=== PATIENT | male | born 1970 | race Caucasian/White ===

== ENCOUNTER 2020-03-08 13:41 | Day surgery (SDC) | payer BC ==
[~2020-03-08] VITALS: Ht 188 cm; Wt 97.7 kg
[2020-03-08] MEDS ORDERED: CARV25 (14:11)
[2020-03-08] MEDS ORDERED: OMEP20ER (14:11)
== END 2020-03-08 15:37 | disposition home or self-care (01) ==
LOC: ORSCSDS 13:41
PROVIDERS: Internal Medicine Gastroenterology
PROC: 0DJD8ZZ Inspection of Lower Intestinal Tract, Via Natural or Artificial Opening Endoscopic (ICD-10-PCS; principal; 2020-03-08 15:15)
DX: Z12.11 Encounter for screening for malignant neoplasm of colon (principal); K57.30 Diverticulosis of large intestine without perforation or abscess without bleeding; K64.8 Other hemorrhoids; I10 Essential (primary) hypertension; E78.00 Pure hypercholesterolemia, unspecified; G47.33 Obstructive sleep apnea (adult) (pediatric); K21.9 Gastro-esophageal reflux disease without esophagitis; Z79.899 Other long term (current) drug therapy
CPT/HCPCS: J2250; J2704; J7120

== ENCOUNTER 2021-11-12 06:51 | Inpatient (IN) | payer OTHER, BC ==
[~2021-11-12] VITALS: Ht 188 cm; Wt 99.8 kg
[~2021-11-12 06:51] MED LIST: CARV25; OMEP20ER
[2021-11-12 08:17] LABS: BASOPHILS ABSOLUTE AUTO 0.04 K/mm3 (0.00-0.23); BASOPHILS PERCENT AUTO 0 % (0-2); EOSINOPHILS ABSOLUTE AUTO 0.14 K/mm3 (0.00-0.68); EOSINOPHILS PERCENT AUTO 1 % (0-6); Hematocrit 41.8 % (37.0-53.0); Hemoglobin 14.2 g/dL (13.5-17.5); IMMATURE GRAN ABSOLUTE AUTO 0.08 K/mm3 (0.00-0.10); IMMATURE GRAN PERCENT AUTO 1 % (0-1); LYMPHOCYTES ABSOLUTE AUTO 1.76 K/mm3 (0.84-5.20); LYMPHOCYTES PERCENT AUTO 15 % (21-46); MONOCYTES ABSOLUTE AUTO 1.05 K/mm3 (0.16-1.47); MONOCYTES PERCENT AUTO 9 % (4-13); Mean Corpuscular HGB 30.5 pg (26.0-34.0); Mean Corpuscular Volume 90 fL (80-100); Mean Platelet Volume 8.8 fL (9.1-12.4); NEUTROPHILS ABSOLUTE AUTO 8.68 K/mm3 (1.96-9.15); NEUTROPHILS PERCENT AUTO 74 % (41-73); Platelet Count 540 K/mm3 (150-400); RDW Coefficient Variation 12.6 % (11.7-14.2); RDW Standard Deviation 41.5 fL (35.1-46.3); Red Blood Cell Count 4.66 M/mm3 (4.30-5.90); White Blood Cell Count 11.75 K/mm3 (4.00-11.30)
[2021-11-12 08:29] LABS: Alanine Aminotransfer (ALT/SGP 77 U/L (12-78); Albumin, Blood 3.2 g/dL (3.4-5.0); Albumin/Globulin Ratio 0.7 (0.8-1.8); Alk Phos 118 U/L (50-136); Anion Gap 6 mmol/L (6-16); Aspartate Aminotrans (AST/SGOT 23 U/L (12-37); Bilirubin, Total 0.4 mg/dL (0.1-1.0); Blood Urea Nitrogen 15 mg/dL (8-24); CO2, Blood 27 mmol/L (21-32); Calcium, Blood 9.4 mg/dL (8.5-10.1); Chloride, Blood 103 mmol/L (98-108); Creatinine, Blood 1.15 mg/dL (0.60-1.20); Globulin, Blood 4.7 g/dL (2.2-4.0); Glomerular Filtration Rate >60 (60-); Glucose, Blood 120 mg/dL (70-99); Potassium, Blood 4.1 mmol/L (3.5-5.5); Sodium, Blood 136 mmol/L (136-145); Total Protein, Blood 7.9 g/dL (6.4-8.2)
[2021-11-12] MEDS ORDERED: Carvedilol12.5 MG PO (11:08)
[2021-11-12] MEDS ORDERED: COLCRYS0.6 M1 PO (11:51)
--- NOTE | 2021-11-12 17:30 | NUR ---
TRANSFER IN/ SHIFT SUMMARY PATIENT CAME TO SCU THIS AFTERNOON FROM ICU. SHE HAD PREVIOUSLY BEEN INTUBATED, BUT IS NOW SUSTAINING ON ROOM AIR. PATIENT IS AWAKE, BUT DEMENTED WITH ALTERED LOC. SHE APPEARS TO BE [place]. SHE DOES SPEAK WORDS, BUT THE MAJORITY OF THE TIME THEY DO NOT FLOW WITH LOGICAL CONVERSATION. SHE LOOKS AROUND AT THE CEILING IF SHE IS WATCHING SOMETHING. PATIENT IS ABLE TO FOLLOW SIMPLE DIRECTIONS. SHE IS ON A REGULAR DIET AFTER SPEECH THERAPY ASSESSED HER TODAY AFTER COMING TO SCU. SHE TAKES PO MEDICATIONS CRUSHED IN APPLE SAUCE. PATIENT IS ON ROOM AIR. SHE HAS A 18 G SUPERGLIDE IN RIGHT AC. PATIENT IS BEDBOUND AND IF STAFF DESIRE TO GET UP INTO A CHAIR, ASSIST OF 2 WOULD BE NEEDED. SHE IS INCONTINENT AND WEARS ATTENDS. SHE DENIES PAIN. PATIENT RECIEVES IV ABX UNISYN AND THERE IS AN ORDER FOR TKO NS. PATIENT WAS HAVING SEIZURE ACTIVITY UPON ARRIVAL TO [facility], BUT THAT APPEARS TO HAVE SUBSIDED. THE PLAN FOR THIS PATIENT IS TO HOPEFULLY GO HOME ON HOSPICE WEDNESDAY. HER DAUGHTER IS WORKING ON GETTING A HOSPITAL BED TO HOME.
--- NOTE | 2021-11-12 17:51 | NUR ---
SHIFT SUMMARY- PATIENTS PAIN HAS BEEN MANAGED PRETTY EFFECTELILY THROUGHOUT THE SHIFT. HE CAME INTO THE ER WITH SEVERE ABDOMINAL PAIN, WHICH IS NOW THOUGHT TO BE DUE TO CHRONS. RECEIVED 50 MCG FETYNAL IN THE ER BEFORE TRANSFER TO SCU. HE RECIEVED 25 MCG FETYNAL THIS EVENING AT 1645. DR. MORRIS CHANGED THIS PATIENT MEDICATION FROM UNYSON TO FLAGYL (METRONIDAZOLE) IV. FIRST BAG WAS HUNG AT 1650. RESPIRATORY THERAPY WAS HERE TO GO OVER THE PATIENTS HOME CPAP MACHINE, WHICH HIS BROUGHT IN. PATIENT IS ALERT AND ORIENTATED, INDEPENDENTLY UP IN ROOM AND TO THE BR. PATIENT DIDN'T WANT TO USE SCD'S, BUT WOULD RATHER BE UP MOVING AROUND ON HIS OWN. WAS HERE VISITING MUCH OF TODAY, BUT RECENTLY WENT HOME. PATIENT IS COMFORTABLE AT THIS TIME.
[2021-11-13 05:35] LABS: BASOPHILS ABSOLUTE AUTO 0.03 K/mm3 (0.00-0.23); BASOPHILS PERCENT AUTO 0 % (0-2); EOSINOPHILS ABSOLUTE AUTO 0.07 K/mm3 (0.00-0.68); EOSINOPHILS PERCENT AUTO 1 % (0-6); Hematocrit 36.6 % (37.0-53.0); Hemoglobin 12.4 g/dL (13.5-17.5); IMMATURE GRAN ABSOLUTE AUTO 0.09 K/mm3 (0.00-0.10); IMMATURE GRAN PERCENT AUTO 1 % (0-1); LYMPHOCYTES ABSOLUTE AUTO 2.28 K/mm3 (0.84-5.20); LYMPHOCYTES PERCENT AUTO 22 % (21-46); MONOCYTES ABSOLUTE AUTO 0.84 K/mm3 (0.16-1.47); MONOCYTES PERCENT AUTO 8 % (4-13); Mean Corpuscular HGB 30.5 pg (26.0-34.0); Mean Corpuscular HGB Conc 33.9 g/dL (31.5-36.5); Mean Corpuscular Volume 90 fL (80-100); Mean Platelet Volume 8.8 fL (9.1-12.4); NEUTROPHILS ABSOLUTE AUTO 7.22 K/mm3 (1.96-9.15); NEUTROPHILS PERCENT AUTO 68 % (41-73); Platelet Count 505 K/mm3 (150-400); RDW Coefficient Variation 12.7 % (11.7-14.2); RDW Standard Deviation 41.9 fL (35.1-46.3); Red Blood Cell Count 4.07 M/mm3 (4.30-5.90); White Blood Cell Count 10.53 K/mm3 (4.00-11.30)
[2021-11-13 05:57] LABS: Anion Gap 7 mmol/L (6-16); Blood Urea Nitrogen 17 mg/dL (8-24); Bun/Creatinine Ratio 16.3 (12.0-20.0); CO2, Blood 26 mmol/L (21-32); Calcium, Blood 8.7 mg/dL (8.5-10.1); Chloride, Blood 106 mmol/L (98-108); Creatinine, Blood 1.04 mg/dL (0.60-1.20); Glomerular Filtration Rate >60 (60-); Glucose, Blood 108 mg/dL (70-99); Potassium, Blood 3.9 mmol/L (3.5-5.5); Sodium, Blood 139 mmol/L (136-145)
--- NOTE | 2021-11-13 06:14 | NUR ---
SHIFT SUMMARY PT DOING WELL, NO C/O PAIN OR NAUSEA THIS SHIFT, NPO PER ORDERS, IVF INFUSING. VSS, AFEBRILE, ABX'S PER MAR. PT INDEPENDENT IN ROOM, VSS, NO BM THIS SHIFT AND PT REPORTS HE HAS NOT SEEN BLOOD IN HIS STOOL. ANTICIPATE D/C WHEN MEDICALLY STABLE.
--- NOTE | 2021-11-13 17:46 | NUR ---
REPORT GIVEN TO KAMALA MELENDEZ RN ON PATIENT FOR TRANSER.
[2021-11-13 19:51] LABS: International Normalized Ratio 1.11; Prothrombin Time Results 11.6 Sec (9.7-11.5)
--- NOTE | 2021-11-14 06:27 | NUR ---
Patient AAOX3, denies pain or disconfort at this time. Patient pleasant and cooperative with care. He his going for a colonocopy today and was being prep. He is now NPO. He is receiving LR @ 100 ML /HR. No acute events occur, we uill continue to monitor until report given to the oncoming RN.
--- NOTE | 2021-11-14 07:49 | NUR ---
History, Chart, Medications and Allergies reviewed before start of procedure. Patient confirms NPO status and agrees with scheduled surgery.
--- NOTE | 2021-11-14 08:44 | NUR ---
11/14/21 0844 Rosa Elena Ulloa MONITOR INTACT WITH CONTINUOUS PULSE OXIMETRY AND INTERMITTENT BP.
[2021-11-14 09:10] LABS: HBSAG SCREEN Negative (Negative); HCV ANTIBODY <0.1 (0.0-0.9); HEP B CORE AB, TOT Negative (Negative)
--- NOTE | 2021-11-14 09:59 | NUR ---
DR RODRIGUES AT BEDSIDE WITH PATIENT AND PATIENT'S , EMIL, REVIEWING EGD/COLONOSCOPY RESULTS.
--- NOTE | 2021-11-14 17:12 | NUR ---
DAY SHIFT SUMMARY 51 YR OLD MALE ADMITTED FOR SMALL BOWEL OBSTRUCTION. PT WENT FOR ENDOSCOPY AND COLONOSCOPY TODAY. GAG REFLEX TESTED EVERY 15 MIN AFTER RETURN TO FLOOR. GAG REFLEX RETURNED AFTER AN HOUR OF RETURN TO FLOOR. DIET ADVANCED FROM NPO TO CLEAR LIQUIDS TO PUREE. AT BEDSIDE. CALL LIGHT WITHIN REACH. PT ABLE TO CALL APPROPRIATELY.
[2021-11-15 05:21] LABS: BASOPHILS ABSOLUTE AUTO 0.02 K/mm3 (0.00-0.23); BASOPHILS PERCENT AUTO 0 % (0-2); EOSINOPHILS PERCENT AUTO 0 % (0-6); Hematocrit 38.6 % (37.0-53.0); Hemoglobin 12.9 g/dL (13.5-17.5); IMMATURE GRAN ABSOLUTE AUTO 0.07 K/mm3 (0.00-0.10); IMMATURE GRAN PERCENT AUTO 1 % (0-1); LYMPHOCYTES ABSOLUTE AUTO 1.76 K/mm3 (0.84-5.20); LYMPHOCYTES PERCENT AUTO 16 % (21-46); MONOCYTES ABSOLUTE AUTO 0.58 K/mm3 (0.16-1.47); MONOCYTES PERCENT AUTO 5 % (4-13); Mean Corpuscular HGB 30.6 pg (26.0-34.0); Mean Corpuscular HGB Conc 33.4 g/dL (31.5-36.5); Mean Corpuscular Volume 92 fL (80-100); Mean Platelet Volume 9.1 fL (9.1-12.4); NEUTROPHILS ABSOLUTE AUTO 8.66 K/mm3 (1.96-9.15); NEUTROPHILS PERCENT AUTO 78 % (41-73); Platelet Count 557 K/mm3 (150-400); RDW Coefficient Variation 12.7 % (11.7-14.2); RDW Standard Deviation 42.1 fL (35.1-46.3); Red Blood Cell Count 4.21 M/mm3 (4.30-5.90); White Blood Cell Count 11.09 K/mm3 (4.00-11.30)
[2021-11-15 05:35] LABS: Anion Gap 8 mmol/L (6-16); Blood Urea Nitrogen 13 mg/dL (8-24); CO2, Blood 23 mmol/L (21-32); Calcium, Blood 8.7 mg/dL (8.5-10.1); Chloride, Blood 109 mmol/L (98-108); Creatinine, Blood 1.08 mg/dL (0.60-1.20); Glomerular Filtration Rate >60 (60-); Glucose, Blood 144 mg/dL (70-99); Potassium, Blood 4.2 mmol/L (3.5-5.5); Sodium, Blood 140 mmol/L (136-145)
--- NOTE | 2021-11-15 06:22 | NUR ---
PM SHIFT SUMMARY PATIENT CAME IN WITH COMPLAINTS OF LUQ ABD PAIN FOR 1.5 WEEKS. HE HAD AN ENDOSCOPY AND COLONOSCOPY HERE WITH US WHICH SHOWED HE HAS CROHN OF THE TERMINAL ILEUM WITH STRICTURE PARTIAL SBO. THE OBSTRUCTION RESOLVED SPONTANEOUSLY. HE WILL BE TRANSITIONING FROM SOLUMEDROL TO PREDNISONE, WHICH HE WILL TAKE FOR 1 MONTH OUTPATIENT. HE IS EXPECTED TO DISCHARGE TODAY BUT NEEDS TO HAVE HIS BLOODWORK AND CHEST XRAY COMPLETED PRIOR TO BEING DISCHARGED.
[2021-11-15 08:10] LABS: EBV AB VCA, IGM <36.0 U/mL (0.0-35.9)
--- NOTE | 2021-11-15 11:21 | NUR ---
DR. AMY RODRIGUES GAVE VORB OF REGULAR DIET ORDER. PATIENT HAS NOTICED PAIN IMPROVEMENT AND HAS NO COMPLAINTS OF PAIN. PATIENT IS WAITING FOR ORDERS TO DC HOME WITH VIA PERSONAL VEHICLE.
[2021-11-15] MEDS ORDERED: VISBIOME 112.51 EACH PO (12:48)
[2021-11-15] MEDS ORDERED: ASCO500 PO (12:50)
[2021-11-15] MEDS ORDERED: DOCU100 PO (12:52)
[2021-11-15] MEDS ORDERED: FERSU300 PO (12:53)
[2021-11-15] MEDS ORDERED: METR500 PO (12:54)
[2021-11-15] MEDS ORDERED: LEVO750 PO (12:54)
[2021-11-15] MEDS ORDERED: ONDA4 PO (12:56)
[2021-11-15] MEDS ORDERED: PRED20 PO (12:57)
--- NOTE | 2021-11-15 13:37 | NUR ---
PT DCD HOME AT 1331 WITH WITH PERSONAL VEHICLE. PATIENT AND HAVE NO QUESTIONS ABOUT MEDICATIONS OR FOLLOW UP.
[2021-11-17 14:08] LABS: ACTIN (SMOOTH MUSCLE) ANTIBODY 9 Units (0-19)
[2021-11-17 15:08] LABS: QUANTIFERON MITOGEN VALUE >10.00 IU/mL (.); QUANTIFERON NIL VALUE 0.02 IU/mL (.); QUANTIFERON TB1 AG VALUE 0.02 IU/mL (.); QUANTIFERON TB2 AG VALUE 0.03 IU/mL (.); QUANTIFERON-TB GOLD PLUS Negative (Negative)
== END 2021-11-15 13:36 | disposition home or self-care (01) | DRG 385 ==
LOC: ER 06:51 → MEDS 09:59
PROVIDERS: Emergency Medicine; Internal Medicine; Internal Medicine Gastroenterology; ADMIT Family Medicine
PROC: 0DBG8ZX Excision of Left Large Intestine, Via Natural or Artificial Opening Endoscopic, Diagnostic (ICD-10-PCS; 2021-11-14)
PROC: 0DBB8ZX Excision of Ileum, Via Natural or Artificial Opening Endoscopic, Diagnostic (ICD-10-PCS; 2021-11-14)
PROC: 0DB68ZX Excision of Stomach, Via Natural or Artificial Opening Endoscopic, Diagnostic (ICD-10-PCS; 2021-11-14)
PROC: 0DB98ZX Excision of Duodenum, Via Natural or Artificial Opening Endoscopic, Diagnostic (ICD-10-PCS; principal; 2021-11-14 08:00)
PROC: 0DBF8ZX Excision of Right Large Intestine, Via Natural or Artificial Opening Endoscopic, Diagnostic (ICD-10-PCS; 2021-11-14 08:00)
DX: K50.012 Crohn's disease of small intestine with intestinal obstruction (principal); K65.1 Peritoneal abscess; Z53.29 Procedure and treatment not carried out because of patient's decision for other reasons; I10 Essential (primary) hypertension; E78.5 Hyperlipidemia, unspecified; G47.33 Obstructive sleep apnea (adult) (pediatric); K21.9 Gastro-esophageal reflux disease without esophagitis; K22.2 Esophageal obstruction; D50.9 Iron deficiency anemia, unspecified; K64.8 Other hemorrhoids; M10.9 Gout, unspecified; K44.9 Diaphragmatic hernia without obstruction or gangrene; K57.30 Diverticulosis of large intestine without perforation or abscess without bleeding; F10.10 Alcohol abuse, uncomplicated; Z98.890 Other specified postprocedural states; Z71.51 Drug abuse counseling and surveillance of drug abuser; Z87.19 Personal history of other diseases of the digestive system; Z87.891 Personal history of nicotine dependence; Z88.8 Allergy status to other drugs, medicaments and biological substances; Z79.899 Other long term (current) drug therapy
CPT/HCPCS: 36415; 71046; 74176; 74177; 80048; 80053; 82103; 82104; 82306; 82390; 82607; 82728; 82746; 83540; 83550; 83690; 85025; 85610; 86015; 86038; 86140; 86317; 86381; 86480; 86664; 86665; 86704; 86708; 86735; 86762; 86765; 86803; 87340; 88305; 88342; 94760; 94762; 96365; 96375; 96376; 99285-25; A9270; C9113; J1100; J1200; J1956; J2001; J2405; J2543; J2704; J2920; J3010; J7030; J7120; Q9967

== ENCOUNTER → 2021-12-23 | Outpatient (CLI) | payer OTHER, BC ==
[~2021-12-23] MED LIST changes: +ASCO500 PO; +COLCRYS0.6 M1 PO; +Carvedilol12.5 MG PO; +DOCU100 PO; +FERSU300 PO; +LEVO750 PO; +METR500 PO; +ONDA4 PO; +PRED20 PO; +VISBIOME 112.51 EACH PO
== END ==
LOC: LAB SHORT 09:40
DX: Z48.817 Encounter for surgical aftercare following surgery on the skin and subcutaneous tissue (principal); L08.9 Local infection of the skin and subcutaneous tissue, unspecified
CPT/HCPCS: 87070; 87205

== ENCOUNTER 2022-10-07 11:14 | Day surgery (SDC) | payer BC ==
[~2022-10-07] VITALS: Ht 188 cm; Wt 98.5 kg
[2022-10-07] MEDS ORDERED: OMEP20ER (11:33)
== END 2022-10-07 13:28 | disposition home or self-care (01) ==
LOC: ORSCSDS 11:14
PROVIDERS: Internal Medicine Gastroenterology
PROC: 0DBG8ZX Excision of Left Large Intestine, Via Natural or Artificial Opening Endoscopic, Diagnostic (ICD-10-PCS; principal; 2022-10-07 12:30)
PROC: 0DBB8ZX Excision of Ileum, Via Natural or Artificial Opening Endoscopic, Diagnostic (ICD-10-PCS; principal; 2022-10-07 12:30)
PROC: 0DBF8ZX Excision of Right Large Intestine, Via Natural or Artificial Opening Endoscopic, Diagnostic (ICD-10-PCS; principal; 2022-10-07 12:30)
DX: K50.90 Crohn's disease, unspecified, without complications (principal); Z86.010 Personal history of colon polyps; K57.30 Diverticulosis of large intestine without perforation or abscess without bleeding; I10 Essential (primary) hypertension; Z79.899 Other long term (current) drug therapy
CPT/HCPCS: 88305; J0330; J0461; J2250; J2405; J2704; J7120; Q9968

== ENCOUNTER 2022-12-09 12:41 | Inpatient (IN) | payer OTHER ==
[~2022-12-09] VITALS: Ht 188 cm; Wt 97.5 kg
[2022-12-09 14:31] LABS: Albumin/Globulin Ratio 1.1 (0.8-1.8); Bilirubin, Total 1.3 mg/dL (0.1-1.0); Bun/Creatinine Ratio 10.6 (12.0-20.0); Calcium, Blood 9.5 mg/dL (8.5-10.1); Creatinine, Blood 1.13 mg/dL (0.60-1.20); Globulin, Blood 3.8 g/dL (2.2-4.0); Total Protein, Blood 7.8 g/dL (6.4-8.2)
[2022-12-09 14:52] LABS: BASOPHILS ABSOLUTE AUTO 0.02 K/mm3 (0.00-0.23); BASOPHILS PERCENT AUTO 0 % (0-2); EOSINOPHILS ABSOLUTE AUTO 0.06 K/mm3 (0.00-0.68); EOSINOPHILS PERCENT AUTO 1 % (0-6); Hematocrit 43.9 % (37.0-53.0); Hemoglobin 15.2 g/dL (13.5-17.5); IMMATURE GRAN ABSOLUTE AUTO 0.06 K/mm3 (0.00-0.10); IMMATURE GRAN PERCENT AUTO 1 % (0-1); LYMPHOCYTES ABSOLUTE AUTO 2.13 K/mm3 (0.84-5.20); LYMPHOCYTES PERCENT AUTO 18 % (21-46); MONOCYTES PERCENT AUTO 9 % (4-13); Mean Corpuscular HGB 31.2 pg (26.0-34.0); Mean Corpuscular HGB Conc 34.6 g/dL (31.5-36.5); Mean Corpuscular Volume 90 fL (80-100); NEUTROPHILS PERCENT AUTO 72 % (41-73); RDW Coefficient Variation 12.4 % (11.7-14.2); RDW Standard Deviation 40.8 fL (35.1-46.3); Red Blood Cell Count 4.87 M/mm3 (4.30-5.90); White Blood Cell Count 11.67 K/mm3 (4.00-11.30)
[2022-12-09 15:32] LABS: Mean Platelet Volume 9.4 fL (9.1-12.4); Platelet Count 306 K/mm3 (150-400)
[2022-12-09 15:52] LABS: Source, Urine Clean Catch
[2022-12-09 16:11] LABS: Appearance, Urine Clear (Clear); Bilirubin, Urine Neg (Neg); Blood, Urine Neg (Neg); Color, Urine Yellow (P-Yellow); Glucose Qualitative, Urine Neg (Neg); Ketones, Urine Neg (Neg); Leukocyte Esterase, Urine Neg (Neg); Nitrite, Urine Neg (Neg); Protein, Urine Neg (Neg); Specific Gravity, Urine 1.005 (1.003-1.022); Urobilinogen, Urine NORM (Normal)
--- NOTE | 2022-12-09 17:37 | NUR ---
Pt admitted for bowel obstruction. Patient AOx4, independent in room. Patient reported pain is currently 2/10, radiating t/o ABD. Bowel tones hypoactive. Vitals stable. NPO tonight. IV in left AC, Normal saline infusing. Patient declined skin check by 2x RNs. Patient reported history of melanoma, scar noted on head from removal of melanoma. Plan is to administred fluids, solumedrol, ABX. Will contine plan of care.
--- NOTE | 2022-12-10 05:06 | NUR ---
SHIFT SUMMARY 52 YR M ADMITTED ON 12/09/22 FOR BOWEL OBSTRUCTION. FULL CODE. NO ACUTE CHANGES THIS SHIFT. PT HAS BEEN NPO AND ONLY HAD A SMALL SIP OF WATER TO SWALLOW TYLENOL. HE HAS FLUIDS INFUSING AND HAS SLEPT FOR MOST OF THIS SHIFT. AND FRIENDS WERE AT BEDSIDE AT BEGINNING OF SHIFT BUT LEFT FOR THE NIGHT SHORTLY AFTER.
[2022-12-10 05:16] LABS: Bun/Creatinine Ratio 14.4 (12.0-20.0); Calcium, Blood 9.1 mg/dL (8.5-10.1); Creatinine, Blood 1.04 mg/dL (0.60-1.20); Potassium, Blood 3.9 mmol/L (3.5-5.5)
--- NOTE | 2022-12-10 16:30 | NUR ---
SHIFT SUMMARY PATIENT IS ALERT AND ORIENTED. PATIENT HAS HAD NO ACUTE EVENTS THIS SHIFT. VITAL SIGNS REVIEWED. PATIENT HAS BEEN GETTING NS 100/HR THIS SHIFT. PATIENT HAS DIVERTICULITIS AND HAS BEEN GETTING ABX. PATIENT HAS HAD DIET UPGRADED TO CLEAR LIQUID DIET AND TOLERATING WELL. PATIENT HAS BEEN IND IN ROOM. PATIENTS HAS BEEN WITH PT ALL SHIFT. PATIENT HAS NOT COMPLAINED OF NAUSEA, SOB OR VOMITTING. PATIENT COMPLAINED OF A HEADACHE AND MEDICATED PER EMAR. BED IN LOCKED AND LOWEST POSITION. CALL LIGHT IN SHIFT.
[2022-12-11 05:12] LABS: BASOPHILS ABSOLUTE AUTO 0.01 K/mm3 (0.00-0.23); BASOPHILS PERCENT AUTO 0 % (0-2); EOSINOPHILS PERCENT AUTO 0 % (0-6); Hemoglobin 13.4 g/dL (13.5-17.5); IMMATURE GRAN ABSOLUTE AUTO 0.04 K/mm3 (0.00-0.10); IMMATURE GRAN PERCENT AUTO 0 % (0-1); LYMPHOCYTES ABSOLUTE AUTO 1.82 K/mm3 (0.84-5.20); LYMPHOCYTES PERCENT AUTO 14 % (21-46); MONOCYTES ABSOLUTE AUTO 0.66 K/mm3 (0.16-1.47); MONOCYTES PERCENT AUTO 5 % (4-13); Mean Corpuscular HGB 31.4 pg (26.0-34.0); Mean Corpuscular HGB Conc 34.4 g/dL (31.5-36.5); Mean Corpuscular Volume 91 fL (80-100); Mean Platelet Volume 9.3 fL (9.1-12.4); NEUTROPHILS ABSOLUTE AUTO 10.14 K/mm3 (1.96-9.15); NEUTROPHILS PERCENT AUTO 80 % (41-73); Platelet Count 284 K/mm3 (150-400); RDW Coefficient Variation 12.7 % (11.7-14.2); RDW Standard Deviation 42.3 fL (35.1-46.3); Red Blood Cell Count 4.27 M/mm3 (4.30-5.90); White Blood Cell Count 12.67 K/mm3 (4.00-11.30)
--- NOTE | 2022-12-11 05:24 | NUR ---
SHIFT SUMMARY 52 YR M ADMITTED ON 12/09/22 FOR BOWEL OBSTRUCTION/DIVERTICULITIS. FULL CODE. PT STATES THAT HE HAD A BOWEL MOVEMENT AROUND MIDNIGHT THIS SHIFT. HE STATES THAT IT WAS ABOUT 1/2 LOOSE AND 1/2 SOLID. HE STATED THAT HE FELT MUCH BETTER AFTERWARD. NO ACUTE CHANGES OTHERWISE. HE IS A&O X 4 AND INDEPENDANT IN THE ROOM. NO C/O PAIN OR DISCOMFORT THIS SHIFT.
[2022-12-11 05:42] LABS: Bun/Creatinine Ratio 13.6 (12.0-20.0); Calcium, Blood 8.9 mg/dL (8.5-10.1); Creatinine, Blood 1.1 mg/dL (0.60-1.20)
[2022-12-11] MEDS ORDERED: VISBIOME 112.51 EACH PO (13:05)
[2022-12-11] MEDS ORDERED: AMOCLA875 PO (13:05)
[2022-12-11] MEDS ORDERED: BUDESONIDE EC3 M1 PO (13:06)
--- NOTE | 2022-12-11 13:30 | NUR ---
DISCHARGE NOTE- PT WAS GIVEN VERBAL AND WRITTEN DISCHARGE INSTRUCTIONS AND ACKNOWLEDGED UNDERSTANDING OF THEM. IV DC'D PRIOR TO DISCHARGE. PT AND SPOUSE DECLINED WC AND ESCORT AND WALKED OUT ON THEIR OWN. NO S&S OF DISTRESS NOTED AT THE TIME OF DISCHARGE.
== END 2022-12-11 13:29 | disposition home or self-care (01) | DRG 386 ==
LOC: ER 12:41 → MEDS 12:42
PROVIDERS: Internal Medicine; Student in an Organized Health Care Education/Training Program; ADMIT Internal Medicine
DX: K50.912 Crohn's disease, unspecified, with intestinal obstruction (principal); K57.32 Diverticulitis of large intestine without perforation or abscess without bleeding; R73.9 Hyperglycemia, unspecified; T38.0X5A Adverse effect of glucocorticoids and synthetic analogues, initial encounter; I10 Essential (primary) hypertension; K21.9 Gastro-esophageal reflux disease without esophagitis; M10.9 Gout, unspecified; Z85.820 Personal history of malignant melanoma of skin; Z91.041 Radiographic dye allergy status; Z88.8 Allergy status to other drugs, medicaments and biological substances; Z79.899 Other long term (current) drug therapy
CPT/HCPCS: 36415; 74177; 80048; 80053; 81003; 83690; 85025; 93005; 93010; 96361; 96365-59; 96367; 96372; 96375; 96376; 99285-25; A9270; C9113; G0378; J0295; J0696; J1200; J1650; J2920; J2930; J3010; J7030; Q9967

== ENCOUNTER 2023-01-08 16:10 | Emergency (ER) | payer OTHER ==
[~2023-01-08] VITALS: Ht 188 cm; Wt 95.2 kg
[~2023-01-08 16:10] MED LIST changes: +AMOCLA875 PO; +BUDESONIDE EC3 M1 PO
[2023-01-08 19:59] LABS: BASOPHILS ABSOLUTE AUTO 0.02 K/mm3 (0.00-0.23); BASOPHILS PERCENT AUTO 0 % (0-2); EOSINOPHILS ABSOLUTE AUTO 0.06 K/mm3 (0.00-0.68); EOSINOPHILS PERCENT AUTO 1 % (0-6); Hematocrit 45.5 % (37.0-53.0); Hemoglobin 15.3 g/dL (13.5-17.5); IMMATURE GRAN ABSOLUTE AUTO 0.04 K/mm3 (0.00-0.10); IMMATURE GRAN PERCENT AUTO 0 % (0-1); LYMPHOCYTES ABSOLUTE AUTO 2.36 K/mm3 (0.84-5.20); LYMPHOCYTES PERCENT AUTO 20 % (21-46); MONOCYTES ABSOLUTE AUTO 1.12 K/mm3 (0.16-1.47); MONOCYTES PERCENT AUTO 9 % (4-13); Mean Corpuscular HGB Conc 33.6 g/dL (31.5-36.5); Mean Corpuscular Volume 92 fL (80-100); Mean Platelet Volume 8.9 fL (9.1-12.4); NEUTROPHILS ABSOLUTE AUTO 8.27 K/mm3 (1.96-9.15); NEUTROPHILS PERCENT AUTO 70 % (41-73); Platelet Count 329 K/mm3 (150-400); RDW Coefficient Variation 12.7 % (11.7-14.2); RDW Standard Deviation 43.1 fL (35.1-46.3); Red Blood Cell Count 4.94 M/mm3 (4.30-5.90); White Blood Cell Count 11.87 K/mm3 (4.00-11.30)
[2023-01-08 20:10] LABS: Albumin, Blood 4.4 g/dL (3.4-5.0); Albumin/Globulin Ratio 1.1 (0.8-1.8); Bilirubin, Total 0.9 mg/dL (0.1-1.0); Bun/Creatinine Ratio 11.6 (12.0-20.0); Calcium, Blood 9.8 mg/dL (8.5-10.1); Creatinine, Blood 1.12 mg/dL (0.60-1.20); Potassium, Blood 3.7 mmol/L (3.5-5.5); Total Protein, Blood 8.4 g/dL (6.4-8.2)
[2023-01-08 22:00] VITALS: BP 164/100
== END 2023-01-08 22:11 | disposition home or self-care (01) ==
LOC: ER 16:10
PROVIDERS: Student in an Organized Health Care Education/Training Program
DX: R10.9 Unspecified abdominal pain (principal); K21.9 Gastro-esophageal reflux disease without esophagitis; K50.90 Crohn's disease, unspecified, without complications; Z79.899 Other long term (current) drug therapy; V89.2XXA Person injured in unspecified motor-vehicle accident, traffic, initial encounter; Y92.411 Interstate highway as the place of occurrence of the external cause
CPT/HCPCS: 36415; 70450; 71046; 74177; 80053; 85025; 93005; 93010; 96374; 99285-25; A9270; J1200; Q9967

== ENCOUNTER 2023-06-30 08:19 | Day surgery (SDC) | payer BC ==
[~2023-06-30] VITALS: Ht 188 cm; Wt 93.6 kg
[2023-06-30] MEDS ORDERED: Amlodipine Bes2.5 MG (08:33)
[2023-06-30 11:32] VITALS: BP 121/86
== END 2023-06-30 11:24 | disposition home or self-care (01) ==
LOC: ORSCSDS 08:19
PROVIDERS: Internal Medicine Gastroenterology
PROC: 0DB58ZX Excision of Esophagus, Via Natural or Artificial Opening Endoscopic, Diagnostic (ICD-10-PCS; principal; 2023-06-30 09:30)
PROC: 0D757ZZ Dilation of Esophagus, Via Natural or Artificial Opening (ICD-10-PCS; principal; 2023-06-30 09:30)
DX: R13.10 Dysphagia, unspecified (principal); K50.90 Crohn's disease, unspecified, without complications; K21.00 Gastro-esophageal reflux disease with esophagitis, without bleeding; K22.2 Esophageal obstruction; K44.9 Diaphragmatic hernia without obstruction or gangrene; K75.81 Nonalcoholic steatohepatitis (NASH); I10 Essential (primary) hypertension; E78.5 Hyperlipidemia, unspecified; G47.33 Obstructive sleep apnea (adult) (pediatric); Z79.899 Other long term (current) drug therapy
CPT/HCPCS: 88305; J2704; J7120

== ENCOUNTER 2023-08-10 09:42 | Observation (INO) | payer OTHER ==
[~2023-08-10] VITALS: Ht 188 cm; Wt 95.2 kg
[~2023-08-10 09:42] MED LIST changes: +Amlodipine Bes2.5 MG PO
[2023-08-10 10:23] LABS: BASOPHILS ABSOLUTE AUTO 0.02 K/mm3 (0.00-0.23); BASOPHILS PERCENT AUTO 0 % (0-2); EOSINOPHILS ABSOLUTE AUTO 0.02 K/mm3 (0.00-0.68); EOSINOPHILS PERCENT AUTO 0 % (0-6); Hematocrit 41.4 % (37.0-53.0); Hemoglobin 14.4 g/dL (13.5-17.5); IMMATURE GRAN ABSOLUTE AUTO 0.03 K/mm3 (0.00-0.10); IMMATURE GRAN PERCENT AUTO 0 % (0-1); LYMPHOCYTES ABSOLUTE AUTO 1.24 K/mm3 (0.84-5.20); LYMPHOCYTES PERCENT AUTO 12 % (21-46); MONOCYTES ABSOLUTE AUTO 0.71 K/mm3 (0.16-1.47); MONOCYTES PERCENT AUTO 7 % (4-13); Mean Corpuscular HGB 32.5 pg (26.0-34.0); Mean Corpuscular HGB Conc 34.8 g/dL (31.5-36.5); Mean Corpuscular Volume 94 fL (80-100); Mean Platelet Volume 8.8 fL (9.1-12.4); NEUTROPHILS ABSOLUTE AUTO 8.56 K/mm3 (1.96-9.15); NEUTROPHILS PERCENT AUTO 81 % (41-73); Platelet Count 266 K/mm3 (150-400); RDW Coefficient Variation 12.3 % (11.7-14.2); RDW Standard Deviation 42.5 fL (35.1-46.3); Red Blood Cell Count 4.43 M/mm3 (4.30-5.90); White Blood Cell Count 10.58 K/mm3 (4.00-11.30)
[2023-08-10 10:52] LABS: Albumin, Blood 3.8 g/dL (3.4-5.0); Albumin/Globulin Ratio 1.1 (0.8-1.8); Bilirubin, Total 1.7 mg/dL (0.1-1.0); Bun/Creatinine Ratio 11.6 (12.0-20.0); Calcium, Blood 8.9 mg/dL (8.5-10.1); Creatinine, Blood 0.95 mg/dL (0.60-1.20); Globulin, Blood 3.6 g/dL (2.2-4.0); Potassium, Blood 3.9 mmol/L (3.5-5.5); Total Protein, Blood 7.4 g/dL (6.4-8.2)
[2023-08-10 16:57] VITALS: BP 133/79
[2023-08-10] MEDS ORDERED: OMEP20ER PO (18:06)
--- NOTE | 2023-08-10 18:23 | NUR ---
SHIFT SUMMARY: ASSUMED CARE OF PATIENT UPON HIS ARRIVAL FROM ED AT 1648. ORIENTED TO ROOM, UNIT, CALL LIGHT, FALL PREVENTION MEASURES, AND FIRE/IGNITION RISK. STATED HAS NO INCENDIARY DEVICES. A&O X 4, PLEASANT. ABD PAIN IS 3/10, WAS GIVEN TORADOL IN ED PRIOR TO TRANSFER. DENIES N/V, LBM WAS 08/08/23; HAS NOT EATEN ANYTHING SINCE WEDNESDAY. INDEPENDENT IN ROOM. WILL BRING PT'S CPAP FROM HOME TOMORROW.
[2023-08-10 19:55] VITALS: BP 126/69
--- NOTE | 2023-08-11 04:20 | NUR ---
SHIFT SUMMARY PT LAYING IN BED DURING BEDSIDE ROUNDS, REPORT FROM RASHEEDA HELLER RN PT REPORTS PAIN IN ABDOMEN IS TOLERABLE SINCE TORADOL GIVEN - PT TOOK SCHEDULED HS MEDICATION WITHOUT PROBLEMS, IV INFUSING LR @ 150- PT GIVEN TORADOL FOR C/O INCREASED ABDOMEN PAIN- PT USES CALL LIGHT APPROPRIATE, PT INDEPENDENT IN ROOM- BED LOW POSITION, CALL LIGHT WITH REACH
[2023-08-11 04:23] VITALS: BP 138/90
[2023-08-11 05:27] LABS: BASOPHILS ABSOLUTE AUTO 0.01 K/mm3 (0.00-0.23); BASOPHILS PERCENT AUTO 0 % (0-2); EOSINOPHILS PERCENT AUTO 0 % (0-6); Hematocrit 40.1 % (37.0-53.0); Hemoglobin 13.5 g/dL (13.5-17.5); IMMATURE GRAN ABSOLUTE AUTO 0.06 K/mm3 (0.00-0.10); IMMATURE GRAN PERCENT AUTO 1 % (0-1); LYMPHOCYTES ABSOLUTE AUTO 1.03 K/mm3 (0.84-5.20); LYMPHOCYTES PERCENT AUTO 11 % (21-46); MONOCYTES PERCENT AUTO 2 % (4-13); Mean Corpuscular HGB 31.5 pg (26.0-34.0); Mean Corpuscular HGB Conc 33.7 g/dL (31.5-36.5); Mean Corpuscular Volume 94 fL (80-100); Mean Platelet Volume 9.2 fL (9.1-12.4); NEUTROPHILS ABSOLUTE AUTO 7.93 K/mm3 (1.96-9.15); NEUTROPHILS PERCENT AUTO 86 % (41-73); Platelet Count 248 K/mm3 (150-400); RDW Coefficient Variation 12.4 % (11.7-14.2); RDW Standard Deviation 42.8 fL (35.1-46.3); Red Blood Cell Count 4.28 M/mm3 (4.30-5.90); White Blood Cell Count 9.23 K/mm3 (4.00-11.30)
[2023-08-11 06:05] LABS: Albumin, Blood 3.4 g/dL (3.4-5.0); Bilirubin, Total 0.9 mg/dL (0.1-1.0); Bun/Creatinine Ratio 16.2 (12.0-20.0); Calcium, Blood 8.8 mg/dL (8.5-10.1); Creatinine, Blood 0.93 mg/dL (0.60-1.20); Globulin, Blood 3.5 g/dL (2.2-4.0); Potassium, Blood 4.3 mmol/L (3.5-5.5); Total Protein, Blood 6.9 g/dL (6.4-8.2)
[2023-08-11 07:16] VITALS: BP 137/80
[2023-08-11] MEDS ORDERED: PRED20 PO (14:24)
[2023-08-11 14:43] VITALS: BP 134/85
--- NOTE | 2023-08-11 17:36 | NUR ---
SUMMARY- PT A/O X4, INDEPENDANT IN ROOM. HAD A BM THIS AM MOSTLY [place] WITH SOME FORMED CHUNCKS. PASSING GAS. HAS HAD NO ABD PAIN BUT STATES ABD FEELS TIGHT AND SLIGHTLY DISTENDED. PT HAS AMBULATED IN THE HALLS TODAY MULT TIMES WITH ACCOMPANYING. PT ADVANCED TO A GENERAL DIET FOR DINNER, TOLERATED BEEF TIPS AND PEES. WANTING TO DELAY DISCHARGE IN CASE SBO IS NOT RESLOVED, DR LOAIZA IS AWARE AND APPROVES PT STAYING UNTIL SURE SBO RESOLVED.
[2023-08-11 19:14] VITALS: BP 149/92
[2023-08-12 04:06] VITALS: BP 140/80
--- NOTE | 2023-08-12 04:24 | NUR ---
SHIFT SUMMARY PATIENT IS A/O X4. ABLE TO MAKE NEEDS KNOWN AND CALLS APPROPRIATELY. PER REPORT PATIENT IS TOLERATING ORAL INTAKE. PATIENT TAKES MEDS WHOLE WITH WATER. PATIENT REPORTS SOME PAIN IN HIS LEFT LOWER ABDOMEN-PATIENT DENIES NEED FOR PAIN MEDICATIONS. PATIENT SLEPT WELL T/O NIGHT. BED IS LOCKED IN THE LOWEST POSITION WITH CALL LIGHT IN REACH. NO ACUTE CHANGES OR S/S OF DISTRESS.
[2023-08-12 07:24] VITALS: BP 123/77
--- NOTE | 2023-08-12 09:00 | NUR ---
Pt laying in bed, family at bedside, a/ox4, pleasant and cooperative with care, follows commands well, states he's suppose to go home today if he tolerates breakfast, denies pain, states he's passing cole and having stools, call light in reach.
--- NOTE | 2023-08-12 10:34 | NUR ---
PT HAS BEEN DISCHARGED TO HOME, MEDS WERE CALLED IN AND READY, IV REMOVED INTACT, WENT OVER INSTRUCTIONS, HE VERBALIZED UNDERSTANDING, LEFT VIA AMBULATION WITH IN ATTENDENCE WITH ALL BELONGINGS.
== END 2023-08-12 10:30 | disposition home or self-care (01) ==
LOC: ER 09:42 → PCU 09:43 → MEDS 09:43 → ER 09:43 → MEDS 17:30 → ENPENDDIS 08-11 12:18 → MEDS 08-12 10:30
PROVIDERS: Physician Assistant; Student in an Organized Health Care Education/Training Program; ADMIT Internal Medicine
DX: K56.600 Partial intestinal obstruction, unspecified as to cause (principal); K50.90 Crohn's disease, unspecified, without complications; K57.30 Diverticulosis of large intestine without perforation or abscess without bleeding; K21.9 Gastro-esophageal reflux disease without esophagitis; I10 Essential (primary) hypertension; Z91.041 Radiographic dye allergy status; Z88.8 Allergy status to other drugs, medicaments and biological substances; Z79.899 Other long term (current) drug therapy
CPT/HCPCS: 36415; 74177; 80053; 82947; 83690; 85025; 96361; 96365; 96366; 96367; 96375; 96376; 99285-25; A9270; G0378; J0295; J1200; J1885; J2543; J2920; J7030; J7120; Q9967

== ENCOUNTER → 2024-10-13 | Outpatient (CLI) | payer BC ==
[~2024-10-13] MED LIST changes: -ASCO500 PO; +ENTYVIO300 M1; +ENTYVIO300 MG; +OMEP20ER PO; +Percocet 5-3251 EACH PO; +THERA-D2000 UNIT PO; +Vitamin B Comple1 EA PO; +Vitamin C100 M1 PO
[2024-10-17 15:48] LABS: CALPROTECTIN,FECAL 123 ug/g (<=49)
== END | disposition home or self-care (01) ==
LOC: LAB SHORT 10-12 11:56 → LAB 10-12 11:56
PROVIDERS: Physician Assistant Medical
DX: K50.012 Crohn's disease of small intestine with intestinal obstruction (principal)
CPT/HCPCS: 83993

== ENCOUNTER 2024-10-17 13:41 | Day surgery (SDC) | payer BC ==
[~2024-10-17] VITALS: Ht 188 cm; Wt 96.1 kg
[~2024-10-17 13:41] MED LIST changes: +Atropine Sulfate 0.1 MG/ML 10ML SYR ONE; +Glycopyrrolate 0.2 MG/ML 1MLVIAL ONE; +Lactated Ringer's 1,000 ML IV ONE; +Lidocaine 2% 5 ML SDV ONE; +Lidocaine HCl/Pf 1% 5 ML VIAL ONE; +Methylene Blue 1% 100 MG/10 ML VIAL ONE; +Ondansetron HCl 2 MG / ML 2ML Vial ONE; +ePHEDrine Sulfate 50 MG/ML 1ML Injection ONE
[2024-10-17] MEDS ORDERED: Lactated Ringer's 1,000 ML IV ONE (14:37)
[2024-10-17] MEDS ORDERED: propofoL 50 ML IV ONE (14:43)
[2024-10-17 16:02] VITALS: BP 124/91
== END 2024-10-17 15:56 | disposition home or self-care (01) ==
LOC: ORSCSDS 13:41
PROVIDERS: Internal Medicine Gastroenterology
PROC: 0DJD8ZZ Inspection of Lower Intestinal Tract, Via Natural or Artificial Opening Endoscopic (ICD-10-PCS; principal; 2024-10-17 15:15)
DX: K50.90 Crohn's disease, unspecified, without complications (principal); K21.9 Gastro-esophageal reflux disease without esophagitis; K57.30 Diverticulosis of large intestine without perforation or abscess without bleeding; K75.81 Nonalcoholic steatohepatitis (NASH); Z87.891 Personal history of nicotine dependence; Z79.899 Other long term (current) drug therapy
CPT/HCPCS: J0461; J2003; J2405; J2704; J7120; Q9968